=== PATIENT | female | born 1930 | race Caucasian/White ===

== ENCOUNTER 2017-09-02 13:26 | Inpatient (IN) | payer MEDICARE, MEDICAID ==
[~2017-09-02] VITALS: Ht 170.2 cm; Wt 57.2 kg
[2017-09-02] MEDS ORDERED: B/P MED (13:41)
[2017-09-02] MEDS ORDERED: NAMENDA (13:41)
[2017-09-02 14:08] LABS: BASOPHILS % (AUTO) 0.9 % (0.0-2.0); EOSINOPHILS # (AUTO) 0.2 K/uL (0.0-0.7); EOSINOPHILS % (AUTO) 3.2 % (0.0-7.0); HEMATOCRIT 34.5 % (40-50); HEMOGLOBIN 11.9 G/DL (14.0-18.0); LYMPHOCYTES # (AUTO) 1.2 K/UL (0.8-4.8); LYMPHOCYTES % (AUTO) 23.6 % (20.5-51.5); MEAN CORPUSCULAR HEMOGLOBIN 31.9 UUG (27.0-31.0); MEAN CORPUSCULAR HGB CONC 35 g/dL (32.0-37.0); MEAN CORPUSCULAR VOLUME 92.7 FL (82.0-92.0); MONOCYTES # (AUTO) 0.5 K/UL (0.1-1.30); MONOCYTES % (AUTO) 10.1 % (0.0-11.0); NEUTROPHILS # (AUTO) 3.3 K/UL (1.8-8.9); NEUTROPHILS % (AUTO) 62.2 % (38.5-71.5); PLATELET COUNT (AUTO) 269 K/UL (150-450); RED BLOOD CELL COUNT(AUTO) 3.73 MIL/UL (4.7-6.1); WHITE BLOOD COUNT (AUTO) 5.2 K/UL (4.0-11.2)
[2017-09-02 14:11] LABS: CARBON DIOXIDE 25 mmol/L (21-32); CHLORIDE 105 mmol/L (98-107); CREATININE 1.9 mg/dL (0.6-1.3); GLUCOSE 103 mg/dL (74-106); POTASSIUM 3.4 mmol/L (3.5-5.1); UREA NITROGEN, BLOOD 26 mg/dL (7-18)
[2017-09-02 14:14] LABS: *BILIRUBIN,URIN NEGATIVE (NEGATIVE); *BLOOD, URINE NEGATIVE (NEGATIVE); *CLARITY,URINE SLIGHTLY CLOUDY (CLEAR); *COLOR,URINE YELLOW (YELLOW); *KETONES,URINE NEGATIVE (NEGATIVE); *PROTEIN,URINE 1+ (NEGATIVE); LEUKOCYTE ESTERASE ,URINE TRACE (NEGATIVE); NITRITE, URINE NEGATIVE (NEGATIVE); PH,URINE 6.5 (5.0-8.0); UGLUCOSE NEGATIVE (NEGATIVE)
[2017-09-02 14:24] LABS: ALANINE AMINOTRANSFERASE 19 U/L (14-59); ALKALINE PHOSPHATASE 102 U/L (50-136); ASPARTATE AMINOTRANSFERASE 15 U/L (15-37); BILIRUBIN,DIRECT 0.1 mg/dL (0.0-0.2); BILIRUBIN,TOTAL 0.4 mg/dL (0.1-1.0)
[2017-09-02 14:25] LABS: ACETAMINOPHEN < 2.0 ug/mL (10-30); TOTAL PROTEIN, SERUM 6.9 g/dL (6.4-8.2)
[2017-09-02 14:30] LABS: ETHANOL < 3 MG/DL (0-0)
[2017-09-02 14:42] LABS: *AMPHETAMINE, URINE NEGATIVE (NEGATIVE); *BARBITURATE, URINE NEGATIVE (NEGATIVE); *CANNABINOID, URINE NEGATIVE (NEGATIVE); *COCCAINE, URINE NEGATIVE (NEGATIVE); *OPIATE, URINE NEGATIVE (NEGATIVE); *PHENCYCLIDINE SCREEN,URINE NEGATIVE (NEGATIVE)
[2017-09-02 14:47] LABS: BACTERIA,URINE MODERATE /HPF (NONE SEEN); SQUAMOUS EPITHELIAL CELL,UR MANY /HPF (NONE SEEN)
--- NOTE | 2017-09-02 17:41 | NUR ---
MSE COMPLETED, 5150 PLACED, SBAR REPORT TO MHU. VERONICA COURTNEY ORDEREDD/SEBNT. BELONGINGS LIST DONE. PT TO RM 139A VIA W/C.
[2017-09-02 18:17] VITALS: BP 156/74
[2017-09-02] MEDS ORDERED: TEMAZEPAM 7.5 MG CAPSULE PO PRN (18:30)
[2017-09-02] MEDS ORDERED: ACETAMINOPHEN 325 MG TABLET PO PRN (18:30)
[2017-09-02] MEDS ORDERED: MAGNESIUM HYDROXIDE 30 ML LIQUID UDC PO PRN (18:30)
[2017-09-02] MEDS ORDERED: MAG HYDROX/AL HYDROX/SIMETH 30 ML LIQUID UDC PO PRN (18:30)
[2017-09-02] MEDS ORDERED: LORAZEPAM 0.5 MG TABLET PO PRN (18:30)
--- NOTE | 2017-09-02 19:02 | NUR ---
ADMIT NOTE PT IS A 86 YEAR OLD FEMALE ADMIT TO MHU FOR 5150 GD . PER REPORT PT ATTEMPTED TO [facility] FROM RESIDENTIAL FACILITY, COULD NOT REMEMBER ADDRESS AND HAS BEEN UNCOOPERATIVE WITH CARE GIVERS. PT IS AOX2 CONFUSED AND DISORIENTED. PT IS COMPLIANT WITH ADMIT BUT ANXIOUS AND CONTINUES TO ASK WHY SHE IS HERE DESPITE EDUCATION PROVIDED. NO ACUTE DISTRESS NOTED. COMFORT MEASURES PROVIDED.
--- NOTE | 2017-09-03 04:04 | NUR ---
GPS/NSG Patient first observed awake on unit, pacing hallway with a flat affect, confused, disorganized w/o insight to current situation. Asked nursing why she was here several times minutes after nursing had provided education. Patient requires close observation to ensure safety. 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 Will continue to monitor for safety.
[2017-09-03 07:30] VITALS: BP 147/87
--- NOTE | 2017-09-03 11:25 | NUR ---
Academic Adviser: KONRAD completed and submitted [facility] Mental Health Report on 09/03/17.
--- NOTE | 2017-09-03 13:03 | NUR ---
Initial Discharge Instructions: According to the chart, the pt resides at [facility] [[address] [place] [address]; ]. Per pt, she believes she still lives in her home alone. SW will speak with pt, family, and MD regarding appropriate discharge plans. SW will form a safe and proper discharge plan.
[2017-09-03] MEDS: AMLODIPINE 5 MG TABLET PO SCH (13:42)
[2017-09-03] MEDS: CEPHALEXIN MONOHYDRATE 250 MG CAPSULE PO SCH ×2 (13:42→21:43)
[2017-09-03] MEDS ORDERED: CEPHALEXIN MONOHYDRATE 500 MG CAPSULE PO SCH (14:00)
[2017-09-03 16:07] VITALS: BP 161/86
[2017-09-03] MEDS ORDERED: CLONIDINE HCL 0.1 MG TABLET PO PRN (17:00)
[2017-09-03] MEDS: MUPIROCIN 2% OINT 22 GM TUBE NS SCH ×2 (17:12→20:32)
[2017-09-03 20:07] VITALS: BP 138/81
[2017-09-03] MEDS: QUETIAPINE FUMARATE 25 MG TABLET PO SCH (20:33)
--- NOTE | 2017-09-03 22:00 | NUR ---
received to care, highly visible on unit, wandering the hallway. appears confused and disoriented. poor memory. pleasant upon approach. needs frequent redirection/reality orientation. as of 2199, she remains awake. wandering from her room intermittently. no distress noted.
--- NOTE | 2017-09-03 22:17 | NUR ---
PRN restoril given for insomnia. remains on contact isolation. mostly cooperative with isolation protocols, but needs frequent reminders/education regarding the need to wear an isolation mask, when out of her room.
--- NOTE | 2017-09-03 23:20 | NUR ---
appears to be asleep. no distress noted.
--- NOTE | 2017-09-04 06:00 | NUR ---
slept 7.5 hours, total. continues to sleep. no distress noted.
[2017-09-04] MEDS: CEPHALEXIN MONOHYDRATE 250 MG CAPSULE PO SCH ×3 (06:21→21:44)
[2017-09-04 07:30] VITALS: BP_SYST 126; BP_SYST 144; BP_DIAS 66; BP_DIAS 76
[2017-09-04 07:47] LABS: BASOPHILS # (AUTO) 0.1 K/uL (0.0-8.0); EOSINOPHILS # (AUTO) 0.2 K/uL (0.0-0.7); HEMATOCRIT 34.6 % (31.2-41.9); HEMOGLOBIN 11.9 g/dL (10.9-14.3); LYMPHOCYTES # (AUTO) 1.2 K/uL (20.0-40.0); LYMPHOCYTES % (AUTO) 21.3 % (20.5-51.5); MEAN CORPUSCULAR HEMOGLOBIN 32.2 uug (24.7-32.8); MEAN CORPUSCULAR HGB CONC 34 g/dL (32.3-35.6); MEAN CORPUSCULAR VOLUME 93.8 fL (75.5-95.3); MONOCYTES # (AUTO) 0.5 K/uL (2.0-10.0); MONOCYTES % (AUTO) 10.1 % (0.0-11.0); NEUTROPHILS # (AUTO) 3.5 K/uL (1.8-8.9); NEUTROPHILS % (AUTO) 64.6 % (38.5-71.5); PLATELET COUNT (AUTO) 210 K/uL (179-408); RED BLOOD CELL COUNT(AUTO) 3.69 MIL/uL (3.63-4.92); WHITE BLOOD COUNT (AUTO) 5.4 K/uL (3.8-11.8)
[2017-09-04 08:20] LABS: ALANINE AMINOTRANSFERASE 22 U/L (14-59); ALKALINE PHOSPHATASE 97 U/L (50-136); ASPARTATE AMINOTRANSFERASE 14 U/L (15-37); BILIRUBIN,TOTAL 0.4 mg/dL (0.2-1.0); CARBON DIOXIDE 23 mmol/L (21-32); CHLORIDE 105 mmol/L (98-107); CHOLESTEROL 156 mg/dL (<200); GLUCOSE 82 mg/dL (74-106); HDL CHOLESTEROL 75 mg/dL (40-60); MAGNESIUM 2.1 mg/dL (1.8-2.4); PHOSPHOROUS 4.6 mg/dL (2.5-4.9); POTASSIUM 3.6 mmol/L (3.5-5.1); TOTAL PROTEIN, SERUM 6.5 g/dL (6.4-8.2); TRIGLYCERIDES 50 MG/DL (30-150); UREA NITROGEN, BLOOD 28 mg/dL (7-18)
[2017-09-04] MEDS: AMLODIPINE 5 MG TABLET PO SCH ×2 (09:27→20:10)
[2017-09-04] MEDS: MUPIROCIN 2% OINT 22 GM TUBE NS SCH ×2 (09:29→20:09)
[2017-09-04 10:57] LABS: THYROID STIMULATING HORMONE 3.517 mIU/mL (0.358-3.740)
[2017-09-04 13:00] VITALS: BP 138/71
[2017-09-04 15:00] VITALS: BP 138/71
[2017-09-04 20:00] VITALS: BP 158/74
[2017-09-04] MEDS: QUETIAPINE FUMARATE 25 MG TABLET PO SCH (20:09)
[2017-09-05] MEDS: CEPHALEXIN MONOHYDRATE 250 MG CAPSULE PO SCH ×3 (06:42→22:10)
[2017-09-05 07:30] VITALS: BP 151/60
[2017-09-05] MEDS: MUPIROCIN 2% OINT 22 GM TUBE NS SCH ×2 (08:26→21:15)
[2017-09-05] MEDS: AMLODIPINE 5 MG TABLET PO SCH ×2 (08:26→21:06)
[2017-09-05 16:00] VITALS: BP 156/72
[2017-09-05 20:30] VITALS: BP 146/71
[2017-09-05] MEDS: QUETIAPINE FUMARATE 25 MG TABLET PO SCH (21:07)
[2017-09-06] MEDS: CEPHALEXIN MONOHYDRATE 250 MG CAPSULE PO SCH ×3 (06:00→22:05)
[2017-09-06 07:30] VITALS: BP 143/68
[2017-09-06] MEDS: MUPIROCIN 2% OINT 22 GM TUBE NS SCH ×2 (09:00→20:40)
[2017-09-06] MEDS: AMLODIPINE 5 MG TABLET PO SCH ×2 (09:01→20:39)
[2017-09-06 16:00] VITALS: BP_SYST 163; BP_DIAS 78; BP_DIAS 98
[2017-09-06 17:06] VITALS: BP 163/78
[2017-09-06] MEDS: QUETIAPINE FUMARATE 25 MG TABLET PO SCH (20:38)
[2017-09-06 21:16] VITALS: BP 159/78
[2017-09-07] MEDS: CEPHALEXIN MONOHYDRATE 250 MG CAPSULE PO SCH ×3 (05:52→21:32)
[2017-09-07 07:34] VITALS: BP 151/72
[2017-09-07 07:46] VITALS: BP 151/72
[2017-09-07] MEDS: MUPIROCIN 2% OINT 22 GM TUBE NS SCH ×2 (08:15→20:50)
[2017-09-07] MEDS: AMLODIPINE 5 MG TABLET PO SCH ×2 (08:16→20:51)
[2017-09-07 08:35] LABS: ALANINE AMINOTRANSFERASE 21 U/L (14-59); ALKALINE PHOSPHATASE 111 U/L (50-136); ASPARTATE AMINOTRANSFERASE 20 U/L (15-37); BILIRUBIN,TOTAL 0.6 mg/dL (0.2-1.0); CARBON DIOXIDE 25 mmol/L (21-32); CHLORIDE 101 mmol/L (98-107); CREATINE KINASE, TOTAL 168 U/L (26-192); CREATININE 1.6 mg/dL (0.6-1.3); GLUCOSE 91 mg/dL (74-106); MAGNESIUM 2.2 mg/dL (1.8-2.4); PHOSPHOROUS 3.7 mg/dL (2.5-4.9); POTASSIUM 3.7 mmol/L (3.5-5.1); TOTAL PROTEIN, SERUM 7.2 g/dL (6.4-8.2); UREA NITROGEN, BLOOD 25 mg/dL (7-18)
[2017-09-07 08:39] LABS: BASOPHILS % (AUTO) 0.5 % (0.0-2.0); EOSINOPHILS # (AUTO) 0.1 K/uL (0.0-0.7); EOSINOPHILS % (AUTO) 2.7 % (0.0-7.0); HEMATOCRIT 35.5 % (31.2-41.9); HEMOGLOBIN 12.3 g/dL (10.9-14.3); LYMPHOCYTES # (AUTO) 1.1 K/uL (20.0-40.0); LYMPHOCYTES % (AUTO) 20.1 % (20.5-51.5); MEAN CORPUSCULAR HGB CONC 35 g/dL (32.3-35.6); MEAN CORPUSCULAR VOLUME 92.3 fL (75.5-95.3); MONOCYTES # (AUTO) 0.5 K/uL (2.0-10.0); MONOCYTES % (AUTO) 9.1 % (0.0-11.0); NEUTROPHILS # (AUTO) 3.7 K/uL (1.8-8.9); NEUTROPHILS % (AUTO) 67.6 % (38.5-71.5); PLATELET COUNT (AUTO) 252 K/uL (179-408); RED BLOOD CELL COUNT(AUTO) 3.85 MIL/uL (3.63-4.92); WHITE BLOOD COUNT (AUTO) 5.5 K/uL (3.8-11.8)
[2017-09-07 15:56] VITALS: BP 137/71
[2017-09-07 17:49] LABS: *BILIRUBIN,URIN NEGATIVE (NEGATIVE); *BLOOD, URINE NEGATIVE (NEGATIVE); *COLOR,URINE YELLOW (YELLOW); *KETONES,URINE NEGATIVE (NEGATIVE); *PROTEIN,URINE 1+ (NEGATIVE); *UROBILINOGEN,URINE 0.2 E.U./dl (NORMAL); LEUKOCYTE ESTERASE ,URINE NEGATIVE (NEGATIVE); NITRITE, URINE NEGATIVE (NEGATIVE); PH,URINE 6.5 (5.0-8.0); UGLUCOSE NEGATIVE (NEGATIVE)
[2017-09-07 17:57] LABS: *URINE TOTAL PROTEIN RANDOM 36.1 mg/dL (<150/24HR)
[2017-09-07 18:23] LABS: *CLARITY,URINE SLIGHTLY HAZY (CLEAR)
[2017-09-07 18:26] LABS: BACTERIA,URINE FEW /HPF (NONE SEEN); SQUAMOUS EPITHELIAL CELL,UR MANY /HPF (NONE SEEN)
[2017-09-07 20:07] VITALS: BP 139/72
[2017-09-07] MEDS: QUETIAPINE FUMARATE 25 MG TABLET PO SCH (20:51)
[2017-09-08] MEDS: CEPHALEXIN MONOHYDRATE 250 MG CAPSULE PO SCH ×2 (05:46→14:29)
[2017-09-08 07:30] VITALS: BP 131/64
[2017-09-08 08:49] VITALS: BP 131/64
[2017-09-08] MEDS: AMLODIPINE 5 MG TABLET PO SCH (08:49)
[2017-09-08] MEDS: MUPIROCIN 2% OINT 22 GM TUBE NS SCH (08:50)
[2017-09-08 12:05] LABS: A/G RATIO 1.3 (0.7-1.7); ALBUMIN 3.9 g/dL (2.9-4.4); ALPHA-1-GLOBULIN 0.2 g/dL (0.0-0.4); ALPHA-2-GLOBULIN 0.8 g/dL (0.4-1.0); M-SPIKE Not Observed g/dL (Not Observed)
--- NOTE | 2017-09-08 13:30 | NUR ---
DC Note: Patient will be discharged to [facility] [[address] [place] [address]; ) via ambulance before 5pm. Spoke with Day at the facility who states that they are ready to accept the patient today. Spoke with patient's daughter Elizabeth ([phone]) who is aware and agreeable with discharge plans. Patient is aware and agreeable with discharge plans. Patient will follow-up with Dr. Jackson (Cement Handler) and Dr. Quezada (Psychiatrist) at the facility.
--- NOTE | 2017-09-08 17:00 | NUR ---
Called [facility] -spoke to Christin , the clerk carrier they are aware that patient will be back to facility via ambulance.
--- NOTE | 2017-09-08 18:38 | NUR ---
1830 Patient picked up by ambulance and discharged to [facility], alert and Ox3, denies SI/HI, no delusion / no hallucination noted.
== END 2017-09-08 18:30 | DRG 885 ==
LOC: ER 13:26 → EDSEX 13:26 → GPS 17:40
PROVIDERS: ADMIT Psychiatry & Neurology Psychiatry; ATTEND Internal Medicine
DX: F29 Unspecified psychosis not due to a substance or known physiological condition (principal); N17.9 Acute kidney failure, unspecified; N18.9 Chronic kidney disease, unspecified; E46 Unspecified protein-calorie malnutrition; E88.09 Other disorders of plasma-protein metabolism, not elsewhere classified; F03.91 Unspecified dementia, unspecified severity, with behavioral disturbance; F23 Brief psychotic disorder; N39.0 Urinary tract infection, site not specified; Z68.1 Body mass index [BMI] 19.9 or less, adult; E44.1 Mild protein-calorie malnutrition; D53.9 Nutritional anemia, unspecified; E87.6 Hypokalemia; I12.9 Hypertensive chronic kidney disease with stage 1 through stage 4 chronic kidney disease, or unspecified chronic kidney disease; Z22.322 Carrier or suspected carrier of Methicillin resistant Staphylococcus aureus
CPT/HCPCS: 36415; 71010; 76770; 80307; 83735; 83970; 84100; 84155; 84156; 84165; 84300; 84443; 85025; 93005; A4663; G0480; G0480-TC